=== PATIENT | male | born 2000 | race Hispanic/Latino ===

== ENCOUNTER 2022-10-01 20:43 | Emergency (ER) | payer SELFPAY ==
[2022-10-01] MEDS ORDERED: METHYLPREDNISOLONE 125 MG INJ ONE (21:06)
[2022-10-01] MEDS ORDERED: HYDROCODONE/APAP 5/325 MG TAB ONE (21:06)
[2022-10-01] MEDS ORDERED: DIPHENHYDRAMINE 50 MG/ML VIAL ONE (21:06)
[2022-10-01] MEDS ORDERED: AZITHROMYCIN 250 MG TAB ONE (21:07)
[2022-10-01] MEDS ORDERED: KETOROLAC 30 MG/ML INJ ONE (21:07)
[2022-10-01] MEDS ORDERED: NA CHLORIDE 0.9% 1,000 ML ONE (21:07)
[2022-10-01] MEDS ORDERED: TDAP (DIPHTH,PERTUSS(ACELL),TET VAC) 0.5 ML VIAL IMVAC ONE (21:08)
--- NOTE | 2022-10-01 22:00 | RAD REPORT ---
EXAM DESCRIPTION: RAD - Hand Right 3 View - 10/01/2022 9:51 pm CLINICAL HISTORY: PAIN COMPARISON: Ct Stroke Brain Wo Cont dated 10/01/2022; Neck Angio dated 10/01/2022No comparisonsNo comp arisons FINDINGS: Soft tissue swelling is seen along the lateral aspect of the right hand. No fracture, disl ocation or radiopaque foreign body.
[2022-10-01] MEDS ORDERED: DOXYCYCLINE 100 MG CAP PO ONE (22:20)
--- NOTE | 2022-10-01 22:30 | ER ---
Nurse's Notes [facility] Name: Du Harding Age: 22 yrs Sex: Male : 2000 Arrival Date: 10/01/2022 Time: 20:43 Bed DX3 Private MD: Diagnosis: Toxic effect of contact with other venomous marine animals, accidental (unintentional), initial encounter Presentation: 10/01 20:58 Chief complaint: Patient states: bit by [place] does not kl know what bit him. Coronavirus screen: Vaccine status: Patient reports being unvaccinated. Ebola Screen: Patient negative for fever greater than or equal to 101.5 degrees Fahrenheit, and additional compatible Ebola Virus Disease symptoms. Risk Assessment: Do you want to hurt yourself or someone else? Patient reports no desire to harm self or others. Onset of symptoms was October 01, 2022 at 19:00. 20:58 Method Of Arrival: EMS: [facility] 20:58 Acuity: SHABBIR 3 kl 23:11 Initial Sepsis Screen: Does the patient meet any 2 criteria? No. Patient's initial kl sepsis screen is negative. Does the patient have a suspected source of infection? Yes:. Triage Assessment: 21:00 General: Appears uncomfortable, Behavior is cooperative, anxious. Pain: Complains of kl pain in right hand Pain radiates to right arm Pain currently is 10 out of 10 on a pain scale. Quality of pain is described as burning, sharp. EENT: No deficits noted. Neuro: No deficits noted. Cardiovascular: No deficits noted. Respiratory: No deficits noted. Airway is patent Trachea midline Respiratory effort is even, unlabored, Respiratory pattern is regular, symmetrical. GI: No deficits noted. No signs and/or symptoms were reported involving the gastrointestinal system. : No deficits noted. No signs and/or symptoms were reported regarding the genitourinary system. Derm: No deficits noted. No signs and/or symptoms reported regarding the dermatologic system. Musculoskeletal: Capillary refill < 3 seconds, Swelling present in right hand. Injury Description: Puncture sustained to palmar aspect of proximal phalanx of right ring finger. Historical: - Allergies: 20:59 No Known Allergies; kl - Home Meds: 20:59 None [Active]; kl - PMHx: 20:59 None; kl - PSHx: 20:59 None; kl - Immunization history:: Adult Immunizations not up to date. - Social history:: Smoking status: Patient denies any tobacco usage or history of. Screenin:00 [facility] ED Fall Risk Assessment (Adult) History of falling in the last 3 months, kl including since admission No falls in past 3 months (0 pts) Confusion or Disorientation No (0 pts) Intoxicated or Sedated No (0 pts) Impaired Gait No (0 pts) Mobility Assist Device Used No (0 pt) Altered Elimination No (0 pt) Score/Fall Risk Level 0 - 2 = Low Risk Oriented to surroundings, Maintained a safe environment. Abuse screen: Denies threats or abuse. Nutritional screening: No deficits noted. Tuberculosis screening: No symptoms or risk factors identified. Assessment: 22:00 Reassessment: Patient appears in no apparent distress at this time. Patient is alert, kl oriented x 3, equal unlabored respirations, skin warm/dry/pink. Patient states feeling better. Patient states symptoms have improved. Vital Signs: 21:11 BP 152 / 90; Pulse 70; Resp 18; Temp 98; Weight 72.57 kg; Height 5 ft. 6 in. ; Pain cg 10/10; 23:09 BP 144 / 66; Pulse 68; Resp 18; Temp 97(TE); Pulse Ox 99% on R/A; kl 21:11 Body Mass Index 25.82 (72.57 kg, 167.64 cm) cg 21:11 Pain Scale: Adult cg ED Course: 20:46 Patient arrived in ED. rv1 20:46 Opal Downing FNP-C is [facility]. snw 20:46 Prince Hilliard MD is Attending Physician. snw 20:59 Triage completed. kl 21:00 Inserted saline lock: 20 gauge in left antecubital area, using aseptic technique. kl 21:53 Hand Right 3 View XRAY In Process Unspecified. EDMS 22:00 Patient has correct armband on for positive identification. Call light in reach. kl 23:10 No provider procedures requiring assistance completed. kl 23:10 IV discontinued, intact, bleeding controlled, No redness/swelling at site. Pressure kl dressing applied. 23:11 Patient wound care. kl Administered Medications: 20:58 CANCELLED (Other Intervention Used): Ketorolac IM 30 mg IM once snw 21:03 Drug: Ketorolac IVP 30 mg Route: IVP; Site: left antecubital; cg 23:08 Follow up: Response: No adverse reaction; Marked relief of symptoms kl 21:05 Drug: diphenhydrAMINE IVP 25 mg Route: IVP; Site: left antecubital; cg 23:08 Follow up: Response: No adverse reaction; Marked relief of symptoms kl 21:09 Drug: AZITHromycin PO 500 mg Route: PO; cg 21:09 Drug: HYDROcodone-acetaminophen PO 5 mg-325 mg 1 tabs Route: PO; cg 23:08 Follow up: Response: No adverse reaction; Marked relief of symptoms kl 21:09 Drug: MethylPrednisoLONE IVP 125 mg Route: IVP; Site: left antecubital; cg 23:08 Follow up: Response: No adverse reaction; Marked relief of symptoms kl 21:10 Drug: NS 0.9% IV 1000 ml Route: IV; Rate: 1 bolus; Site: left antecubital; cg 23:08 Follow up: IV Status: Completed infusion; IV Intake: 1000ml kl 21:16 Drug: Boostrix Tdap IM 0.5 ml Route: IM; Site: right deltoid; cg 23:08 Follow up: Response: No adverse reaction kl 22:14 Drug: Doxycycline PO 100 mg Route: PO; cg 23:08 Follow up: Response: No adverse reaction kl Medication: 23:11 Vaccine Information Statement (VIS) provided today. Questions and/or concerns kl addressed. VIS edition date: December 24, 2020. Intake: 23:08 IV: 1000ml; Total: 1000ml. kl Outcome: 22:29 Discharge ordered by . snw 23:10 Discharged to home ambulatory. kl 23:10 Condition: stable 23:10 Discharge instructions given to patient, Instructed on discharge instructions, follow up and referral plans. medication usage, wound care, Demonstrated understanding of instructions, follow-up care, medications, wound care, Prescriptions given X 2. 23:11 Patient left the ED. kl Signatures: Dispatcher [employer] Breanna Herrera RN Opal Johnson, BARK FITTER-C BARK FITTER-Marci Knox RN RN cg Villegas, Rebecca rv1
--- NOTE | 2022-10-01 22:31 | EDPHYS ---
Physician Documentation [facility] Name: Du Tena Pu Age: 22 yrs Sex: Male : 2000 Arrival Date: 10/01/2022 Time: 20:43 Bed DX3 Private MD: ED Physician Prince Hilliard HPI: 10/01 22:25 This 22 yrs old Male presents to ER via EMS with complaints of Finger Injury. snw 22:25 The patient or guardian reports a laceration, dirty, pain. The complaints affect the snw MCP of right ring finger. Context: The problem [place] the beach. resulted from stung or struck by something, pt did not see snake or other animal in the water. Onset: The symptoms/episode began/occurred suddenly, just prior to arrival. Associated signs and symptoms: Pertinent positives: pain and swelling. Severity of symptoms: At their worst the symptoms were severe, incapacitating. The patient has not experienced similar symptoms in the past. It is unknown whether or not the patient has recently seen a physician. Historical: - Allergies: 20:59 No Known Allergies; kl - Home Meds: 20:59 None [Active]; kl - PMHx: 20:59 None; kl - PSHx: 20:59 None; kl - Immunization history:: Adult Immunizations not up to date. - Social history:: Smoking status: Patient denies any tobacco usage or history of. ROS: 22:25 Constitutional: Negative for fever, chills, and weight loss, Eyes: Negative for injury, snw pain, redness, and discharge, ENT: Negative for injury, pain, and discharge, Neck: Negative for injury, pain, and swelling, Cardiovascular: Negative for chest pain, palpitations, and edema, Respiratory: Negative for shortness of breath, cough, wheezing, and pleuritic chest pain, Abdomen/GI: Negative for abdominal pain, nausea, vomiting, diarrhea, and constipation, Back: Negative for injury and pain, : Negative for injury, bleeding, discharge, and swelling, Skin: Negative for injury, rash, and discoloration, Neuro: Negative for headache, weakness, numbness, tingling, and seizure, Psych: Negative for depression, anxiety, suicide ideation, homicidal ideation, and hallucinations. 22:25 MS/extremity: Positive for injury or acute deformity, pain, swelling, of the right hand. Exam: 22:24 Head/Face: Normocephalic, atraumatic. Eyes: Pupils equal round and reactive to light, snw extra-ocular motions intact. Lids and lashes normal. Conjunctiva and sclera are non-icteric and not injected. Cornea within normal limits. Periorbital areas with no swelling, redness, or edema. ENT: Nares patent. No nasal discharge, no septal abnormalities noted. Tympanic membranes are normal and external auditory canals are clear. Oropharynx with no redness, swelling, or masses, exudates, or evidence of obstruction, uvula midline. Mucous membranes moist. Neck: Trachea midline, no thyromegaly or masses palpated, and no cervical lymphadenopathy. Supple, full range of motion without nuchal rigidity, or vertebral point tenderness. No Meningismus. Chest/axilla: Normal chest wall appearance and motion. Nontender with no deformity. No lesions are appreciated. 22:24 Respiratory: Lungs have equal breath sounds bilaterally, clear to auscultation and percussion. No rales, rhonchi or wheezes noted. No increased work of breathing, no retractions or nasal flaring. Abdomen/GI: Soft, non-tender, with normal bowel sounds. No distension or tympany. No guarding or rebound. No evidence of tenderness throughout. Back: No spinal tenderness. No costovertebral tenderness. Full range of motion. MS/ Extremity: Pulses equal, no cyanosis. Neurovascular intact. Full, normal range of motion. Neuro: Awake and alert, GCS 15, oriented to person, place, time, and situation. Cranial nerves II-XII grossly intact. Motor strength 5/5 in all extremities. Sensory grossly intact. Cerebellar exam normal. Normal gait. 22:24 Constitutional: The patient appears alert, awake, anxious, restless, uncomfortable. 22:24 Cardiovascular: Rate: tachycardic, Heart sounds: normal. 22:24 Skin: Appearance: normal except for affected area, injury, laceration(s), the wound is approximately 2 cm(s), with a depth of 1 cm(s), of the palmar aspect of proximal phalanx of right ring finger. Vital Signs: 21:11 BP 152 / 90; Pulse 70; Resp 18; Temp 98; Weight 72.57 kg; Height 5 ft. 6 in. ; Pain cg 10/10; 23:09 BP 144 / 66; Pulse 68; Resp 18; Temp 97(TE); Pulse Ox 99% on R/A; kl 21:11 Body Mass Index 25.82 (72.57 kg, 167.64 cm) cg 21:11 Pain Scale: Adult cg MDM: 20:48 Patient medically screened. snw 22:27 Differential diagnosis: closed fracture, contusion, laceration, marine envenomation. snw Data reviewed: vital signs, nurses notes, radiologic studies. I considered the following discharge prescriptions or medication management in the emergency department Medications were administered in the Emergency Department. See MAR. Historians other than the Patient: EMS: [place]. Counseling: I had a detailed discussion with the patient and/or guardian regarding: the historical points, exam findings, and any diagnostic results supporting the discharge/admit diagnosis, radiology results, the need for outpatient follow up, for definitive care, to return to the emergency department if symptoms worsen or persist or if there are any questions or concerns that arise at home. Response to treatment: the patient's symptoms have markedly improved after treatment. Special discussion: Based on the history and exam findings, there is no indication for further emergent testing or inpatient evaluation. I discussed with the patient/guardian the need to see the primary care provider for further evaluation of the symptoms. 10/01 20:48 Order name: Hand Right 3 View XRAY; Complete Time: 22:04 snw Administered Medications: 20:58 CANCELLED (Other Intervention Used): Ketorolac IM 30 mg IM once snw 21:03 Drug: Ketorolac IVP 30 mg Route: IVP; Site: left antecubital; cg 23:08 Follow up: Response: No adverse reaction; Marked relief of symptoms kl 21:05 Drug: diphenhydrAMINE IVP 25 mg Route: IVP; Site: left antecubital; cg 23:08 Follow up: Response: No adverse reaction; Marked relief of symptoms kl 21:09 Drug: AZITHromycin PO 500 mg Route: PO; cg 21:09 Drug: HYDROcodone-acetaminophen PO 5 mg-325 mg 1 tabs Route: PO; cg 23:08 Follow up: Response: No adverse reaction; Marked relief of symptoms kl 21:09 Drug: MethylPrednisoLONE IVP 125 mg Route: IVP; Site: left antecubital; cg 23:08 Follow up: Response: No adverse reaction; Marked relief of symptoms kl 21:10 Drug: NS 0.9% IV 1000 ml Route: IV; Rate: 1 bolus; Site: left antecubital; cg 23:08 Follow up: IV Status: Completed infusion; IV Intake: 1000ml kl 21:16 Drug: Boostrix Tdap IM 0.5 ml Route: IM; Site: right deltoid; cg 23:08 Follow up: Response: No adverse reaction kl 22:14 Drug: Doxycycline PO 100 mg Route: PO; cg 23:08 Follow up: Response: No adverse reaction kl Disposition: 10/02 05:20 Co-signature as Attending Physician, Prince Hilliard MD I agree with the assessment sp4 and plan of care. I reviewed the patient's care provided by the Advanced Practice Provider and agree with the diagnosis and treatment plan. Disposition Summary: 10/01/22 22:29 Discharge Ordered Location: Home snw Condition: Stable snw Diagnosis - Toxic effect of contact with other venomous marine animals, accidental snw (unintentional), initial encounter Followup: snw - With: Emergency Department - When: As needed - Reason: Worsening of condition Followup: snw - With: Private Physician - When: 1 - 2 days - Reason: Recheck today's complaints, Continuance of care, Re-evaluation by your physician Discharge Instructions: - Discharge Summary Sheet snw - Marine Life Injury snw Forms: - Work release form snw - Medication Reconciliation Form snw - Thank You Letter snw - Antibiotic Education snw - Prescription Opioid Use snw Prescriptions: - Mobic 7.5 mg Oral Tablet - take 1 tablet by ORAL route once daily take with food; 20 tablet; Refills: 0, snw Product Selection Permitted - Doxycycline Hyclate 100 mg Oral Tablet - take 1 tablet by ORAL route every 12 hours for 14 days; 28 tablet; Refills: 0, snw Product Selection Permitted - Tramadol 50 mg Oral Tablet - take 1 tablet by ORAL route every 8 hours as needed; 12 tablet; Refills: 0, snw Product Selection Permitted Signatures: Dispatcher [employer] Breanna Herrera RN RN kl Waters, Shelly, FNP-C FNP-Marci Knox RN RN cg Potepalov, Sergey, MD MD sp4 Corrections: (The following items were deleted from the chart) 10/01 20:58 20:48 Ketorolac IM 30 mg IM once ordered. snw snw
[2022-10-01 23:52] VITALS: BP 144/66; TEMP 97; O2SAT 99
== END 2022-10-01 23:11 | disposition home or self-care (01) ==
LOC: ER 20:43
DX: S61.214A Laceration without foreign body of right ring finger without damage to nail, initial encounter (principal); W55.89XA Other contact with other mammals, initial encounter
CPT/HCPCS: 96361; 96372; 96374; 96375; 99284; J1200; J2930; J7030